=== PATIENT | male | born 1990 | race Hispanic/Latino ===

== ENCOUNTER 2021-10-09 12:33 | Emergency (ER) | payer SELFPAY ==
[~2021-10-09] VITALS: Ht 175.3 cm; Wt 77.1 kg
[2021-10-09] MEDS ORDERED: ONDANSETRON ODT4 MG PO (12:47)
[2021-10-09] MEDS ORDERED: MUCINEX DM ER1 EACH PO (12:47)
== END 2021-10-09 13:03 | disposition home or self-care (01) ==
LOC: ER 12:37
DX: U07.1 COVID-19 (principal); R50.9 Fever, unspecified; R05.9 Cough, unspecified; R06.00 Dyspnea, unspecified
CPT/HCPCS: 99283

== ENCOUNTER 2022-08-13 18:40 | Emergency (ER) | payer OTHER, SELFPAY ==
[~2022-08-13] VITALS: Ht 175.3 cm; Wt 82.1 kg
[~2022-08-13 18:40] MED LIST: MUCINEX DM ER1 EACH PO; ONDANSETRON ODT4 MG PO
[2022-08-13] MEDS ORDERED: ULTRAM50 MG PO (20:51)
[2022-08-13 21:05] VITALS: BP 132/86
== END 2022-08-13 21:05 | disposition home or self-care (01) ==
LOC: EDSEX 18:40 → FSED 18:58
DX: S83.8X2A Sprain of other specified parts of left knee, initial encounter (principal); X58.XXXA Exposure to other specified factors, initial encounter; Y92.89 Other specified places as the place of occurrence of the external cause; F41.9 Anxiety disorder, unspecified; F32.A Depression, unspecified
CPT/HCPCS: 81025; 99283